=== PATIENT | female | born 1975 | race Two or more races ===

== ENCOUNTER 2016-07-26 20:48 | Emergency (ER) | payer MEDICAID ==
[2016-07-26 21:24] VITALS: BP 125/79
== END 2016-07-26 22:00 | disposition left against medical advice (07) ==
LOC: ER 20:48
DX: Z53.9 Procedure and treatment not carried out, unspecified reason (principal); R51 Headache

== ENCOUNTER 2016-08-04 07:52 | Emergency (ER) | payer MEDICAID ==
[2016-08-04] MEDS ORDERED: DIPHENHYDRAMINE HCL 50 MG/ML VIAL IV ONE (08:20)
[2016-08-04] MEDS ORDERED: PROCHLORPERAZINE EDISYLATE INJ 10 MG/2 ML VIAL IV ONE (08:20)
--- NOTE | 2016-08-04 08:23 | ER Document Report ---
ED General - General Chief Complaint: Headache Stated Complaint: HEADACHE Mode of Arrival: Ambulatory Information source: Patient Notes: 40-year-old female history of chronic headaches presents with complaints of three-day duration waxing waning headache associated with nausea vomiting. Patient notes this is similar to previous headaches, states this is not the worse headache she has ever had. Patient is in the right side of her head associated with photophobia TRAVEL OUTSIDE OF THE [place] IN LAST 30 DAYS: No - HPI Onset: Other Onset/Duration: Waxing and waning Quality of pain: Achy Severity: Mild Pain Level: 1 Associated symptoms: Headache, Nausea, Vomiting Exacerbated by: Other - Lites Relieved by: Denies Similar symptoms previously: Yes Recently seen / treated by doctor: Yes - Related Data Allergies/Adverse Reactions: No Known Allergies Allergy (Verified 08/04/16 07:54) Past Medical History - Social History Smoking Status: Never Smoker Cigarette use (# per day): No Chew tobacco use (# tins/day): No Smoking Education Provided: No Family History: Reviewed & Not Pertinent Patient has suicidal ideation: No Patient has homicidal ideation: No Renal/ Medical History: Denies: Hx Peritoneal Dialysis - Immunizations Hx Diphtheria, Pertussis, Tetanus Vaccination: Yes Review of Systems - Review of Systems Notes: REVIEW OF SYSTEMS: CONSTITUTIONAL : Denies fever, chills, or sweats. Denies recent illness. EENT: Denies eye, ear, throat, or mouth pain or symptoms. Denies nasal or sinus congestion or discharge. Denies throat, tongue, or mouth swelling or difficulty swallowing. CARDIOVASCULAR: Denies chest pain. Denies palpitations or racing or irregular heart beat. Denies ankle edema. RESPIRATORY: Denies cough, cold, or chest congestion. Denies shortness of breath, difficulty breathing, or wheezing. GASTROINTESTINAL: Admits to nausea vomiting GENITOURINARY: Denies difficulty urinating, painful urination, burning, frequency, blood in urine, or discharge. FEMALE GENITOURINARY: Denies vaginal bleeding, heavy or abnormal periods, irregular periods. Denies vaginal discharge or odor. MUSCULOSKELETAL: Denies back or neck pain or stiffness. Denies joint pain or swelling. SKIN: Denies rash, lesions or sores. HEMATOLOGIC : Denies easy bruising or bleeding. LYMPHATIC: Denies swollen, enlarged glands. NEUROLOGICAL: Admits to headache PSYCHIATRIC: Denies anxiety or stress. Denies depression, suicidal ideation, or homicidal ideation. ALL OTHER SYSTEMS REVIEWED AND NEGATIVE. Dictation was performed using [employer] voice recognition software PHYSICAL EXAMINATION: GENERAL: Well-appearing, well-nourished and in no acute distress. HEAD: Atraumatic, normocephalic. EYES: Pupils equal round and reactive to light, extraocular movements intact, conjunctiva are normal. ENT: Nares patent, oropharynx clear without exudates. Moist mucous membranes. NECK: Normal range of motion, supple without lymphadenopathy LUNGS: Breath sounds clear to auscultation bilaterally and equal. No wheezes rales or rhonchi. HEART: Regular rate and rhythm without murmurs ABDOMEN: Soft, nontender, nondistended abdomen. No guarding, no rebound. No masses appreciated. Female : deferred Musculoskeletal: Normal range of motion, no pitting or edema. No cyanosis. NEUROLOGICAL: Cranial nerves grossly intact. Normal speech, normal gait. Normal sensory, motor exams finger to nose [id number] are normal PSYCH: Normal mood, normal affect. SKIN: Warm, Dry, normal turgor, no rashes or lesions noted. Physical Exam - Vital signs Vitals: Temp Pulse Resp BP Pulse Ox 98.6 F 81 14 126/78 H 98 08/04/16 07:55 08/04/16 07:55 08/04/16 07:55 08/04/16 07:55 08/04/16 07:55 Course - Re-evaluation Re-evalutation: 08/04/16 08:23 Patient has probable migraine headaches, CT of the head has been ordered 08/04/16 10:28 Patient symptoms have completely resolved, she wishes to be discharged home. Patient otherwise looks well will be given follow-up with neurology After performing a Medical Screening Examination, I estimate there is LOW risk for ACUTE GLAUCOMA, TEMPORAL ARTERITIS, MENINGITIS, INCRANIAL HEMORRHAGE, or ISCHEMIC STROKE thus I consider the discharge disposition reasonable. I have reevaluated this patient multiple times and no significant life threatening changes are noted. The patient and I have discussed the diagnosis and risks, and we agree with discharging home with close follow-up with the understanding that symptoms and presentations can change. We also discussed returning to the Emergency Department immediately if new or worsening symptoms occur. We have discussed the symptoms which are most concerning (e.g., changing or worsening symptoms, new numbness or weakness, vomiting, fever) that necessitate immediate return. - Vital Signs Vital signs: Temp Pulse Resp BP Pulse Ox 98.6 F 81 14 126/78 H 98 08/04/16 07:55 08/04/16 07:55 08/04/16 07:55 08/04/16 07:55 08/04/16 07:55 - Diagnostic Test Radiology reviewed: Image reviewed, Reports reviewed - No acute abnormality Discharge - Discharge Clinical Impression: Migraine headache Qualifiers: Migraine type: unspecified Status migrainosus presence: without status migrainosus Intractability: not intractable Qualified Code(s): G43.909 - Migraine, unspecified, not intractable, without status migrainosus Nausea & vomiting Qualifiers: Vomiting type: unspecified Vomiting Intractability: non-intractable Qualified Code(s): R11.2 - Nausea with vomiting, unspecified Condition: Stable Disposition: HOME, SELF-CARE Instructions: Headache ([facility]) Prescriptions: Promethazine HCl [Phenergan 25 mg Tablet] 25 - 50 mg PO Q4HP PRN #12 tablet PRN Reason: Referrals: MATTHEW SAUER MD [ACTIVE STAFF] - Follow up tomorrow
[2016-08-04 10:48] VITALS: BP 116/61
== END 2016-08-04 10:40 | disposition home or self-care (01) ==
LOC: ER 07:52
DX: G43.909 Migraine, unspecified, not intractable, without status migrainosus (principal); R11.2 Nausea with vomiting, unspecified; H53.149 Visual discomfort, unspecified
CPT/HCPCS: 99283; 96374; 96375; 70450; J1200; J0780

== ENCOUNTER 2016-11-05 12:36 | Emergency (ER) | payer MEDICAID ==
--- NOTE | 2016-11-05 15:14 | ER Document Report ---
ED Medical Screen (RME) - General Chief Complaint: Abdominal Pain Stated Complaint: RIB PAIN Time Seen by Provider: 11/05/16 15:13 Mode of Arrival: Ambulatory Information source: Patient Notes: 41-year-old Norwegian female that presents to the emergency room with back pain since this morning. Patient denies fever, chills, nausea vomiting. Patient denies chest pain. TRAVEL OUTSIDE OF THE [place] IN LAST 30 DAYS: No - Related Data Allergies/Adverse Reactions: No Known Allergies Allergy (Verified 08/04/16 07:54) Past Medical History - Social History Chew tobacco use (# tins/day): No Frequency of alcohol use: None Drug Abuse: None Neurological Medical History: Reports: Hx Migraine Renal/ Medical History: Denies: Hx Peritoneal Dialysis GI Medical History: Reports: Hx Gastroesophageal Reflux Disease - TAKES OTC NEXIUM Surgical Hx: Negative - Immunizations Hx Diphtheria, Pertussis, Tetanus Vaccination: Yes Physical Exam - Vital signs Vitals: Temp Pulse Resp BP Pulse Ox 97.9 F 79 17 121/74 99 11/05/16 13:14 11/05/16 13:14 11/05/16 13:14 11/05/16 13:14 11/05/16 13:14 Course - Vital Signs Vital signs: Temp Pulse Resp BP Pulse Ox 97.9 F 79 17 121/74 99 11/05/16 13:14 11/05/16 13:14 11/05/16 13:14 11/05/16 13:14 11/05/16 13:14
[2016-11-05 15:32] LABS: ABSOLUTE EOSINOPHILS # (AUTO) 0.1 10^3/uL (0.0-0.6); ABSOLUTE MONOCYTES (AUTO) 0.8 10^3/uL (0.1-1.4); ABSOLUTE NEUT (AUTO) 5.2 10^3/uL (1.7-8.2); BASOPHILS % (AUTO) 0.4 % (0-2); EOSINOPHILS % (AUTO) 0.9 % (0-6); HEMATOCRIT 35.6 % (36.0-47.0); HEMOGLOBIN 11.2 g/dL (12.0-15.5); LYMPHOCYTES % (AUTO) 39.3 % (13-45); MEAN CORPUSCULAR HEMOGLOBIN 21.3 pg (27.0-33.4); MEAN CORPUSCULAR HGB CONC 31.4 g/dL (32.0-36.0); MEAN CORPUSCULAR VOLUME 68 fl (80-97); MONOCYTES % (AUTO) 7.9 % (3-13); RED BLOOD COUNT 5.23 10^6/uL (3.72-5.28); RED CELL DISTRIBUTION WIDTH 15.8 % (11.5-14.0); SEGMENTED NEUTROPHILS % (AUTO) 51.5 % (42-78); WHITE BLOOD COUNT 10.1 10^3/uL (4.0-10.5)
[2016-11-05 15:35] LABS: APPEARANCE,URINE CLOUDY; BILIRUBIN,URINE NEGATIVE (NEGATIVE); GLUCOSE, URINE NEGATIVE (NEGATIVE); KETONES,URINE NEGATIVE (NEGATIVE); LEUKOCYTE ESTERASE,URINE LARGE (NEGATIVE); NITRITE,URINE NEGATIVE (NEGATIVE); PROTEIN,URINE 30 mg/dL (NEGATIVE); URINE SPECIFIC GRAVITY 1.029; UROBILINOGEN,URINE NEGATIVE mg/dL (<2.0)
[2016-11-05 15:49] LABS: ALANINE AMINOTRANSFERASE 27 U/L (9-52); ALBUMIN 4.4 g/dL (3.5-5.0); ALKALINE PHOSPHATASE 47 U/L (38-126); ANION GAP 11 (5-19); ASPARTATE AMINO TRANSFERASE 14 U/L (14-36); BILIRUBIN,DIRECT 0.2 mg/dL (0.0-0.4); BILIRUBIN,TOTAL 0.4 mg/dL (0.2-1.3); BLOOD UREA NITROGEN 11 mg/dL (7-20); CALCIUM 9.1 mg/dL (8.4-10.2); CARBON DIOXIDE 25 mmol/L (22-30); CHLORIDE 105 mmol/L (98-107); CREATININE RESULT 0.64 mg/dL (0.52-1.25); GLUCOSE 99 mg/dL (75-110); POTASSIUM 4.1 mmol/L (3.6-5.0); SODIUM 140.9 mmol/L (137-145); TOTAL PROTEIN 7.6 g/dL (6.3-8.2)
--- NOTE | 2016-11-05 16:47 | ER Document Report ---
ED General - General Mode of Arrival: Ambulatory TRAVEL OUTSIDE OF THE [place] IN LAST 30 DAYS: No - HPI Onset: Other - Refer to HPI Notes <LIZ AUSTIN - Last Filed: 11/05/16 18:45> <KYRIE BERMAN - Last Filed: 11/05/16 23:41> - General Chief Complaint: Abdominal Pain Stated Complaint: RIB PAIN Time Seen by Provider: 11/05/16 15:13 Notes: Patient is a 41 year old Yemeni speaking female presenting to the ED for right sided pain and RUQ pain onset this morning. [employer] over the phone was used to speak with patient. Patient denies any chest pain, dysuria, burning with urination, vomiting, diarrhea, or fever. Patient states she does have some nausea and urinary frequency. Patient takes Nexium for GERD. Patient does not have any kidney history and does not have a PCP. (LIZ AUSTIN) - Related Data Allergies/Adverse Reactions: No Known Allergies Allergy (Verified 11/05/16 15:54) Home Medications: Current Home Medications Aspirin/Acetaminophen/Caffeine [Goody's Ex-Str Powder Packet] 1 pkt PO DAILY PRN 11/05/16 [History] Esomeprazole Magnesium [Nexium 24Hr] 20 mg PO DAILY 11/05/16 [History] Past Medical History - General Information source: Patient - Social History Smoking Status: Former Smoker Chew tobacco use (# tins/day): No Frequency of alcohol use: None Drug Abuse: None Family History: None Patient has suicidal ideation: No Patient has homicidal ideation: No Neurological Medical History: Reports: Hx Migraine GI Medical History: Reports: Hx Gastroesophageal Reflux Disease - TAKES OTC NEXIUM Surgical Hx: Negative - Immunizations Hx Diphtheria, Pertussis, Tetanus Vaccination: Yes <LIZ AUSTIN - Last Filed: 11/05/16 18:45> Review of Systems - Review of Systems Constitutional: No symptoms reported EENT: No symptoms reported Cardiovascular: No symptoms reported Respiratory: No symptoms reported Gastrointestinal: See HPI, Abdominal pain, Nausea Genitourinary: No symptoms reported Female Genitourinary: No symptoms reported Musculoskeletal: No symptoms reported Skin: No symptoms reported Hematologic/Lymphatic: No symptoms reported Neurological/Psychological: No symptoms reported -: Yes All other systems reviewed and negative <LIZ AUSTIN - Last Filed: 11/05/16 18:45> Physical Exam <LIZ AUSTIN - Last Filed: 11/05/16 18:45> <KYRIE BERMAN - Last Filed: 11/05/16 23:41> - Vital signs Vitals: Temp Pulse Resp BP Pulse Ox 97.9 F 79 17 121/74 99 11/05/16 13:14 11/05/16 13:14 11/05/16 13:14 11/05/16 13:14 11/05/16 13:14 - Notes Notes: GENERAL: Alert, interacts well, Yemeni speaking. Mild distress. HEAD: Normocephalic, atraumatic. EYES: Appear normal. Pupils equal, round, and reactive to light. ENT: Moist mucus membranes, tongue midline. NECK: Full range of motion. Supple. Trachea midline. LUNGS: Clear to auscultation bilaterally, no wheezes, rales, or rhonchi. No respiratory distress. HEART: Regular rate and rhythm. No murmurs, gallops, or rubs. ABDOMEN: Soft, mild RUQ tenderness with palpation. Non-distended. Normal bowel sounds. EXTREMITIES: Moves all 4 extremities spontaneously. Normal strength. No edema. NEUROLOGICAL: Alert and oriented x3. Normal speech, Japanease speaking. No focal neurological deficits. GSC 15. PSYCH: Normal affect, normal mood. SKIN: Warm, dry, normal turgor. No rashes or lesions noted. (LIZ AUSTIN) Course - Laboratory Result Diagrams: 11/05/16 15:14 11/05/16 15:14 <LIZ AUSTIN - Last Filed: 11/05/16 18:45> - Laboratory Result Diagrams: 11/05/16 15:14 11/05/16 15:14 <KYRIE BERMAN - Last Filed: 11/05/16 23:41> - Re-evaluation Re-evalutation: 11/05/16 18:39 Patient is Yemeni and language line is used for translation. 1 day history of right-sided abdominal pain associated with nausea no vomiting diarrhea or association with food. Denies any burning with urination burning urination or history of kidney stones. She says she has no medical problems and is on no medications and has no doctor. On examination well-appearing nontoxic afebrile no acute abdominal findings or flank tenderness urinary tract infection CT scan does not show a kidney stone or pyelonephritis potential gallstones no acute signs of acute cholecystitis. Patient will be discharged on Macrobid after receiving Rocephin gave her family doctor for follow-up she is to call Sunday for a follow-up appointment in 3-4 days and specifically discussed with the language line and in Yemeni her discharge instructions and reasons for ED return sooner (KYRIE BERMAN) - Vital Signs Vital signs: Temp Pulse Resp BP Pulse Ox 97.9 F 80 16 113/81 99 11/05/16 18:50 11/05/16 18:50 11/05/16 18:50 11/05/16 18:50 11/05/16 18:50 - Laboratory Laboratory results interpreted by me: 11/05/16 11/05/16 15:14 15:14 Hgb 11.2 L Hct 35.6 L MCV 68 L MCH 21.3 L MCHC 31.4 L RDW 15.8 H Urine Protein 30 H Urine Blood SMALL H Ur Leukocyte Esterase LARGE H Discharge <LIZ AUSTIN - Last Filed: 11/05/16 18:45> <KYRIE BERMAN - Last Filed: 11/05/16 23:41> - Discharge Clinical Impression: Acute UTI, gallstones Condition: Stable Disposition: HOME, SELF-CARE Instructions: Urinary Tract Infection ([facility]), Nitrofurantoin ([facility]) Additional Instructions: Urinary Tract Infection Your evaluation indicates that you have a urinary tract infection. This is due to germs growing in the bladder. This is a common problem. This infection usually responds quickly to antibiotics. Your antibiotic should be taken exactly as prescribed. Drink plenty of fluids -- three to four quarts a day. Occasionally, a bladder anesthetic will be prescribed to help stop the feeling of urgency until the antibiotic has a chance to clear the infection. This may cause your urine to be dark orange. Certain urine infections require a culture. If the doctor obtained a culture, the results will be back in two days. You should call to see if a change in treatment is needed. A repeat urinalysis after you finish treatment is often recommended. The physician will let you know if further testing is required. Call the doctor if you develop fever, chills, flank pain, inability to urinate, or blood in the urine. Gallbladder Disease- gallstone Your evaluation shows evidence of gallbladder disease. The gallbladder is a pouch under the liver which stores bile. Stones, infection, or irritation of the gallbladder cause attacks of pain. Certain foods -- fats in particular -- may provoke attacks. The usual treatment for gallbladder disease is surgical removal of the gallbladder -- called a cholecystectomy. You will be referred to a physician qualified to advise you on the best treatment for your problem. Hospitalization is not necessary. Take clear liquids only until you are painfree. After that, you should stay on a low-fat diet, with frequent SMALL meals. Call the doctor or return at once if you develop severe pain, repeated vomiting, fever, or jaundice (a yellow color in the skin and whites of the eyes) . Prescriptions: Nitrofurantoin/Nitrofuran Mac [Macrobid 100 mg Capsule] 1 tab PO BID #20 capsule Referrals: [facility] [Provider Group] (Call on Sunday for appointment to be seen in follow-up in 3-4 days return to emergency department sooner for increasing worsening or new symptoms) Print Language: [place] Attestation: 11/05/16 18:39 I personally performed the services described in the documentation reviewed the documentation recorded by my scribe in my presence and it accurately and completely records my words and actions (KYRIE BERMAN) Scribe Documentation - Scribe Written by Rigoberto:: Rigoberto Escobar 11/05/16 18:44 acting as scribe for :: Jona <LIZ AUSTIN - Last Filed: 11/05/16 18:45>
--- NOTE | 2016-11-05 17:02 | RADIOLOGY REPORT (SQ) ---
EXAM DESCRIPTION: CT ABD/PELVIS NO ORAL OR IV COMPLETED DATE/TIME: 11/05/2016 4:49 pm REASON FOR STUDY: flank pain hematuria COMPARISON: None. TECHNIQUE: CT scan of the abdomen and pelvis performed without intravenous or oral contrast. Images reviewed with lung, soft tissue, and bone windows. Reconstructed coronal and sagittal MPR images revi ewed. All images stored on PACS. All CT scanners at this facility use dose modulation, iterative reconstruction, and/or weight based d osing when appropriate to reduce radiation dose to as low as reasonably achievable (ALARA). [facility]: Dose Right [facility]: CareDose [facility]: Dose Right [facility]: Teradose 4D [facility]: Smart URX RADIATION DOSE: Up-to-date CT equipment and radiation dose reduction techniques were employed. CTDIv ol: 10.2 mGy. DLP: 597 mGy-cm.mGy. LIMITATIONS: None. FINDINGS: LOWER CHEST: No significant findings. No nodules or infiltrates. NON-CONTRASTED LIVER, SPLEEN, ADRENALS: Evaluation limited by lack of IV contrast. No identified sign ificant masses. PANCREAS: No masses. No peripancreatic inflammatory changes. GALLBLADDER: Rim calcified gallstone is identified. No inflammatory changes to suggest cholecystitis. RIGHT KIDNEY AND URETER: No suspicious masses. Assessment limited by lack of IV contrast. No signif icant calcifications. No hydronephrosis or hydroureter. LEFT KIDNEY AND URETER: No suspicious masses. Assessment limited by lack of IV contrast. No signifi cant calcifications. No hydronephrosis or hydroureter. AORTA AND RETROPERITONEUM: No aneurysm. No retroperitoneal masses or adenopathy. BOWEL AND PERITONEAL CAVITY: No obvious masses or inflammatory changes. No free fluid. APPENDIX: Normal. PELVIS, BLADDER, AND ABDOMINAL WALL:No abnormal masses. No free fluid. Bladder normal. BONES: No significant findings. OTHER: No other significant finding. IMPRESSION: Rim calcified gallstone. No other significant findings. TECHNICAL DOCUMENTATION: JOB ID: [id number] Quality ID # [id number]: Final reports with documentation of one or more dose reduction techniques (e.g., Au tomated exposure control, adjustment of the mA and/or kV according to patient size, use of iterative reconstruction technique) 2010 [employer]- All Rights Reserved
[2016-11-05] MEDS ORDERED: CEFTRIAXONE INJ 1000 MG VIAL IM ONE (17:50)
[2016-11-05] MEDS ORDERED: NITROFURANTOIN MONOHYD/M-CRYST 100 MG CAPSULE PO ONE (18:42)
[2016-11-05 18:51] VITALS: BP 113/81
== END 2016-11-05 18:50 | disposition home or self-care (01) ==
LOC: ER 12:36
DX: N39.0 Urinary tract infection, site not specified (principal); K80.80 Other cholelithiasis without obstruction; Z79.899 Other long term (current) drug therapy; K21.9 Gastro-esophageal reflux disease without esophagitis; Z87.891 Personal history of nicotine dependence
CPT/HCPCS: 99284; 36415; 87086; 84702; 85025; 80053; 81001; 74176; J3490; J8499

== ENCOUNTER 2017-02-07 07:52 | Day surgery (SDC) | payer MEDICAID ==
[~2017-02-07 07:52] MED LIST: DIPHENHYDRAMINE HCL 50 MG/ML VIAL ONE; EPINEPHRINE INJ 1 MG/10 ML DISP.SYRIN ONE; FLUMAZENIL INJ 0.5 MG/5 ML VIAL ONE; GLUCAGON,HUMAN RECOMB 1 MG INJ ONE; NALOXONE HCL INJ/PF 0.4 MG/1 ML SDV ONE; ONDANSETRON HCL INJ/PF 4 MG/2 ML SDV ONE
[2017-02-07] MEDS: MIDAZOLAM 2 MG/2 ML INJ ONE ×2 (08:30→08:34)
[2017-02-07] MEDS: FENTANYL CITRATE INJ/PF 100 MCG/2 ML AMPUL ONE ×2 (08:32→08:36)
--- NOTE | 2017-02-07 08:47 | Operative Report ---
Operative Report DATE OF SURGERY: 02/07/17 Operative Report: The risks benefits and alternatives of the procedure explained to the patient in detail and informed consent is obtained.A GIF Olympus video scope was inserted into the patient's mouth and hypopharynx, the esophagus is identified intubated and insufflated, the scope was then advanced through the esophagus stomach and duodenum, retroflexion maneuver is done, the esophagus stomach and first and second portions of the duodenum examined PREOPERATIVE DIAGNOSIS: Dysphagia POSTOPERATIVE DIAGNOSIS: Gastritis status post biopsy rule out Helicobacter pylori. Esophagitis status post biopsy rule out eosinophilic esophagitis OPERATION: EGD with biopsy SURGEON: CHARLY HOWELL ANESTHESIA: Moderate Sedation - 4 mg of Zofran, 4 mg of Versed, 100 mcg of fentanyl. Conscious sedation monitoring time 30 minutes. TISSUE REMOVED OR ALTERED: Gastric mucosal specimen obtained. Esophageal mucosal specimen obtained COMPLICATIONS: None. ESTIMATED BLOOD LOSS: None. INTRAOPERATIVE FINDINGS: As noted above. PROCEDURE: Patient tolerated the procedure well. No immediate postprocedure complications are noted. Patient discharged in good condition. Discharge date 3516. Discharge diet: Regular. Discharge activity: Regular. 2-3 week follow-up to discuss findings. Patient is instructed to call the office or proceed to the emergency room should there be any further problems or questions. We will await pathology.
[2017-02-07 10:08] VITALS: BP 112/67
== END 2017-02-07 09:55 | disposition home or self-care (01) ==
LOC: END 07:52
PROVIDERS: ATTEND Internal Medicine Gastroenterology
PROC: 0DB58ZX Excision of Esophagus, Via Natural or Artificial Opening Endoscopic, Diagnostic (ICD-10-PCS; 2017-02-07)
PROC: 0DB68ZX Excision of Stomach, Via Natural or Artificial Opening Endoscopic, Diagnostic (ICD-10-PCS; principal; 2017-02-07 08:00)
DX: K29.50 Unspecified chronic gastritis without bleeding (principal); K21.0 Gastro-esophageal reflux disease with esophagitis; Z87.891 Personal history of nicotine dependence; Z79.899 Other long term (current) drug therapy
CPT/HCPCS: 43239; 88342 ×2; 88305 ×2; J2250; J3010; J2405; J0171; J1200; J1610; J2310; J3490

== ENCOUNTER 2018-05-07 06:31 | Emergency (ER) | payer MEDICAID, OTHER ==
[2018-05-07] MEDS ORDERED: KETOROLAC TROMETHAMINE INJ/PF 30 MG/1 ML SDV IV ONE (07:16)
--- NOTE | 2018-05-07 07:19 | ER Document Report ---
ED General - General Chief Complaint: Flu Symptoms Stated Complaint: HEADACHE,SORE THROAT,COUGH,CHEST PAIN Time Seen by Provider: 05/07/18 07:07 TRAVEL OUTSIDE OF THE [place] IN LAST 30 DAYS: No - HPI Notes: Patient is a 42-year-old female who presents emergency department complaining of fever and dry nonproductive cough that began last evening. Patient states that she has been otherwise eating and drinking without difficulties. Patient states that she does have a burning sensation in her chest only with a cough and not at rest. She has been exposed to a recent illness with in the household. She d enies any drug allergies or smoking history. No other significant past medical history. She does not take any medicines daily. Denies any headache, fever, neck pain, sore throat, palpitations, syncope, shortness of breath, wheeze, dyspnea, abdominal pain, nausea/vomiting/diarrhea, urinary retention, dysuria, hematuria, joint pains, or rash. - Related Data Allergies/Adverse Reactions: No Known Allergies Allergy (Verified 02/07/17 07:55) Past Medical History - Social History Smoking Status: Never Smoker Family History: None - Past Medical History Cardiac Medical History: Denies: Hx Coronary Artery Disease, Hx Heart Attack, Hx Hypertension Pulmonary Medical History: Denies: Hx Asthma, Hx Bronchitis, Hx COPD, Hx Pneumonia Neurological Medical History: Reports: Hx Migraine. Denies: Hx Cerebrovascular Accident, Hx Seizures Renal/ Medical History: Denies: Hx Peritoneal Dialysis GI Medical History: Reports: Hx Gastroesophageal Reflux Disease - TAKES OTC NEXIUM Musculoskeletal Medical History: Denies Hx Arthritis Past Surgical History: Denies: Hx Hysterectomy - Immunizations Hx Diphtheria, Pertussis, Tetanus Vaccination: Yes Review of Systems - Review of Systems -: Yes All other systems reviewed and negative Physical Exam - Vital signs Vitals: Temp Pulse Resp BP Pulse Ox 101 F H 120 H 18 100/78 97 05/07/18 06:43 05/07/18 06:43 05/07/18 06:43 05/07/18 06:43 05/07/18 06:43 - Notes Notes: PHYSICAL EXAMINATION: GENERAL: Well-appearing, well-nourished and in no acute distress. A&Ox4. Answers questions appropriately. Moves comfortably w/o notable distress HEAD: Atraumatic, normocephalic. EYES: Pupils equal round and reactive to light, extraocular movements intact, sclera anicteric, conjunctiva are normal. ENT: EAC clear b/l. TM's intact b/l without erythema, fluid, or perforation. Nares patent and without discharge. oropharynx mild erythema without exudates. 1+ tonsilar hypertrophy without erythema or exudate. No palatine shift. Uvula midline. No tongue protrusion. No drooling, hoarseness, or airway compromise. Moist mucous membranes. No sinus tenderness. NECK: Normal range of motion, supple without lymphadenopathy. No rigidity/meningismus. LUNGS: Breath sounds clear to auscultation bilaterally and equal. No wheezes rales or rhonchi. No retractions HEART: Regular rate and rhythm without murmurs, rubs, gallops. ABDOMEN: Soft, nontender, nondistended abdomen. No guarding, no rebound. No masses appreciated. Normal bowel sounds present. No CVA tenderness bilaterally. No hepatosplenomegaly. Ext's: No edema. No asymmetry. Lu neg b/l. NEUROLOGICAL: Normal speech, normal gait. Normal sensory, motor exams PSYCH: Normal mood, normal affect. SKIN: Warm, Dry, normal turgor, no rashes or lesions noted. Course - Re-evaluation Re-evalutation: 05/07/18 09:23 Patient is an afebrile, well-hydrated, 42-year-old female who presents to the ED with Influenza A. Vitals are acceptable. PE is otherwise unremarkable. Influenza +, strep negative. CXR unremarkable. No other labs or imaging warranted at this time based on H&P. Patient has no significant cardiopulmonary or immunocompromised medical conditions. Patient's lungs are clear to auscultation bilaterally without tachycardia, hypoxia, or tachypnea. Patient is tolerating p.o. without any difficulties. Thoroughly reviewed the risks, be nefits, potential side effects, estimated cost without insurance with patient. After thorough review, patient requested Tamiflu. Low suspicion for any meningitis, sepsis, peritonsillar/pharyngeal abscess, respiratory compromise, severe dehydration, or other emergent systemic condition at this time. Patient is aware this condition can change from initial presentation and she needs to monitor symptoms closely. Conservative measures otherwise for symptoms. Recheck with your PCM in 3-5 days. Return to the ED with any worsening/concerning symptoms otherwise as reviewed in discharge. Patient is in agreement. - Vital Signs Vital signs: Temp Pulse Resp BP Pulse Ox 101 F H 120 H 18 100/78 97 05/07/18 06:43 05/07/18 06:43 05/07/18 06:43 05/07/18 06:43 05/07/18 06:43 Discharge - Discharge Clinical Impression: Influenza A Condition: Stable Additional Instructions: Maintain adequate fluid intake Take meds as directed tylenol/ibuprofen as needed over the counter cold medication as needed for symptoms Humidified air may help Wash your hands regularly Wear a mask when coughing F/u: with your PCM in 3-5 days for a recheck Return to the ED with any fever, worsening pain, chest pain, palpitations, syncope, worsening SANDHU, neck pain/stiffness, shortness of breath, wheezing, drooling, trouble swallowing/breathing, abdominal pain, n/v/d, rash, or worsening/concerning symptoms otherwise. Prescriptions: Oseltamivir Phosphate [Tamiflu 75 mg Capsule] 75 mg PO BID #10 capsule Referrals: [facility] [Provider Group] - Follow up as needed [facility] [Provider Group] - Follow up as needed
--- NOTE | 2018-05-07 07:52 | RADIOLOGY REPORT (SQ) ---
EXAM DESCRIPTION: XR CHEST 2 VIEWS COMPLETED DATE/TME: 05/07/2018 07:15 CLINICAL HISTORY: cough COMPARISON: 04/29/2012 FINDINGS: Frontal and lateral views of the chest. The cardiomediastinal silhouette has normal size and contour. No consolidation, pneumothorax, or pleural effusion. No acute osseous abnormalities. Leads overlie the chest. Upper abdominal soft tissues are unremarkable. IMPRESSION: 1. No acute pulmonary process identified.
[2018-05-07] MEDS: NORMAL SALINE 1000 ML 1,000 ML IV PRN ×2 (07:59→08:39)
[2018-05-07 08:32] LABS: A TYPE INFLUENZA AG POSITIVE (NEGATIVE)
[2018-05-07 08:33] LABS: B INFLUENZA AG NEGATIVE (NEGATIVE)
[2018-05-07 09:26] VITALS: BP 106/58
== END 2018-05-07 09:51 | disposition home or self-care (01) ==
LOC: ER 06:31
DX: J11.1 Influenza due to unidentified influenza virus with other respiratory manifestations (principal); R51 Headache; R05 Cough
CPT/HCPCS: 99283; 96361; 96374; 87070; 87880; 87804; 71046; J1885; J7030

== ENCOUNTER 2018-12-07 12:36 | Emergency (ER) | payer OTHER ==
--- NOTE | 2018-12-07 13:21 | ER Document Report ---
ED GI/ <MARY WYATT Katie - Last Filed: 12/07/18 13:41> - General Information source: Patient TRAVEL OUTSIDE OF THE [place] IN LAST 30 DAYS: No <ZAC LAINEZ - Last Filed: 12/07/18 15:26> - General Chief Complaint: Vaginal Bleeding Stated Complaint: HEAVY VAGINAL BLEEDING Time Seen by Provider: 12/07/18 13:18 Notes: HPI: 43-year-old female that states the last 2 menstrual cycles have been longer than normal. She denies any fevers, pain, dysuria, or blood clots. She states she feels a little lightheaded but denies any headache, neck pain, chest pain, palpitations. ROS: See HPI All other review of systems reviewed and otherwise negative Reviewed vital signs and nursing note as charted by RN. PHYSICAL EXAM: CONSTITUTIONAL: Alert and oriented and responds appropriately to questions. Well-appearing; well-nourished HEAD: Normocephalic; atraumatic EYES: Sclerae pale CARD: Regular rate and rhythm; no murmurs; symmetric distal pulses RESP: Normal chest excursion without splinting or tachypnea; breath sounds clear and equal bilaterally ABD/GI: Normal bowel sounds; non-distended; soft, non-tender to deep palpation of all 4 quadrants of the abdomen BACK: The back appears normal and is non-tender to palpation EXT: Normal ROM in all joints; non-tender to palpation; no edema SKIN: No acute lesions noted NEURO: CN 2-12 intact; 5/5 bilateral upper and lower extremity strength with sensation intact to light touch PSYCH: The patient's mood and manner are appropriate. Grooming and personal hygiene are appropriate. (ZAC LAINEZ) - Related Data Allergies/Adverse Reactions: No Known Allergies Allergy (Verified 02/07/17 07:55) Past Medical History - Social History Smoking Status: Unknown if Ever Smoked Family History: None Patient has suicidal ideation: No Patient has homicidal ideation: No - Past Medical History Cardiac Medical History: Denies: Hx Coronary Artery Disease, Hx Heart Attack, Hx Hypertension Pulmonary Medical History: Denies: Hx Asthma, Hx Bronchitis, Hx COPD, Hx Pneumonia Neurological Medical History: Reports: Hx Migraine. Denies: Hx Cerebrovascular Accident, Hx Seizures Renal/ Medical History: Denies: Hx Peritoneal Dialysis GI Medical History: Reports: Hx Gastroesophageal Reflux Disease - TAKES OTC NEXIUM Musculoskeletal Medical History: Denies Hx Arthritis Past Surgical History: Denies: Hx Hysterectomy - Immunizations Hx Diphtheria, Pertussis, Tetanus Vaccination: Yes <ZAC LAINEZ - Last Filed: 12/07/18 15:26> Physical Exam - Vital signs Vitals: Temp Pulse Resp BP Pulse Ox 98.8 F 83 16 143/86 H 99 12/07/18 12:48 12/07/18 12:48 12/07/18 12:48 12/07/18 12:48 12/07/18 12:48 Course - Laboratory Result Diagrams: 12/07/18 13:50 12/07/18 13:50 <ZAC LAINEZ - Last Filed: 12/07/18 15:26> - Re-evaluation Re-evalutation: 12/07/18 13:21 Given the history and physical examination we will obtain a hemoglobin level, perform a pelvic examination, and reassess. Given that the patient has absolutely no discomfort, the age of 43, I do believe this may be possibly perimenopausal bleeding. 12/07/18 15:20 Labs imaging and pelvic examination results as recorded. Pelvic examination performed by the [facility] showed no obvious external or internal lesions. No cervical motion tenderness. Some blood in the vaginal vault. is negative. Patient still has no pain on examination. Given the above history, physical, hemoglobin level, patient's age, I do not believe any further imaging or laboratory work is necessary at this moment. I will start the patient on Provera daily for 10 days with follow up OBGYN. Strict return precautions explained. (ZAC LAINEZ) - Vital Signs Vital signs: Temp Pulse Resp BP Pulse Ox 98.8 F 83 16 143/86 H 99 12/07/18 12:48 12/07/18 12:48 12/07/18 12:48 12/07/18 12:48 12/07/18 12:48 - Laboratory Laboratory results interpreted by me: 12/07/18 12/07/18 13:50 13:50 Eos % (Auto) 6.9 H Absolute Eos (auto) 0.7 H Glucose 117 H Procedures - Pelvic Exam Pelvic exam Time completed: 13:38 Cultures obtained: Yes Wet prep obtained: Yes Herpes culture obtained: No Foreign body removed: No Bimanual exam performed: Yes Witnessed by: ALEXANDRE Nuñez <MARY WYATT - Last Filed: 12/07/18 13:41> - Pelvic Exam Pelvic exam Notes: 12/07/18 13:38 Patient requested to have female provider complete pelvic exam. Patient with moderate vaginal bleeding with no clots or brisk bleeding. Cervix is closed. There is no CMT or adnexal tenderness. Uterus is non tender to palpation but does appear to be enlarged. (MARY WYATT) Discharge <MARY WYATT - Last Filed: 12/07/18 13:41> <ZAC LAINEZ - Last Filed: 12/07/18 15:26> - Discharge Clinical Impression: Dysfunctional uterine bleeding Condition: Good Disposition: HOME, SELF-CARE Additional Instructions: Come back immediately for any increased bleeding, lightheadedness, dizziness, chest pain, or any other acute problems. Please follow-up with [facility] as we have helped expedite for you. Prescriptions: Medroxyprogesterone Acet [Provera 10 Mg Tablet] 10 mg PO DAILY #7 tablet Referrals: MARINA JAMES MD [YESI ARNDT] - Follow up as needed
[2018-12-07 14:01] LABS: RBCS (WET MOUNT) 4+ RBCS SEEN; T.VAGINALIS (WET MOUNT) NO TRICHOMONAS SEEN; WBCS (WET MOUNT) FEW WBCS SEEN; YEAST (WET MOUNT) NO YEAST SEEN
[2018-12-07 14:06] LABS: ABSOLUTE BASOPHILS # (AUTO) 0.1 10^3/uL (0.0-0.2); ABSOLUTE EOSINOPHILS # (AUTO) 0.7 10^3/uL (0.0-0.6); ABSOLUTE MONOCYTES (AUTO) 0.7 10^3/uL (0.1-1.4); ABSOLUTE NEUT (AUTO) 5.9 10^3/uL (1.7-8.2); BASOPHILS % (AUTO) 0.7 % (0-2); EOSINOPHILS % (AUTO) 6.9 % (0-6); HEMATOCRIT 40.5 % (36.0-47.0); HEMOGLOBIN 13.5 g/dL (12.0-15.5); LYMPHOCYTES % (AUTO) 28.6 % (13-45); MEAN CORPUSCULAR HEMOGLOBIN 27.7 pg (27.0-33.4); MEAN CORPUSCULAR HGB CONC 33.2 g/dL (32.0-36.0); MEAN CORPUSCULAR VOLUME 83 fl (80-97); MONOCYTES % (AUTO) 6.8 % (3-13); PLATELET COUNT 332 10^3/uL (150-450); RED BLOOD COUNT 4.87 10^6/uL (3.72-5.28); RED CELL DISTRIBUTION WIDTH 12.5 % (11.5-14.0); TOTAL CELLS COUNTED % (AUTO) 100 %; WHITE BLOOD COUNT 10.3 10^3/uL (4.0-10.5)
[2018-12-07 14:23] LABS: ANION GAP 10 (5-19); BLOOD UREA NITROGEN 11 mg/dL (7-20); CALCIUM 10.1 mg/dL (8.4-10.2); CARBON DIOXIDE 27 mmol/L (22-30); CHLORIDE 103 mmol/L (98-107); GLUCOSE 117 mg/dL (75-110)
[2018-12-07] MEDS ORDERED: MEDROXYPROGESTERONE ACET 10 MG TABLET PO ONE (15:20)
[2018-12-07 15:23] LABS: CHLAM PCR NOT DETECTED (NOT DETECT)
[2018-12-07 15:59] VITALS: BP 138/74
== END 2018-12-07 15:59 | disposition home or self-care (01) ==
LOC: ER 12:36
DX: N93.8 Other specified abnormal uterine and vaginal bleeding (principal)
CPT/HCPCS: 99284; 36415; 87210; 85025; 81025; 80048; 87491; 87591; J3490

== ENCOUNTER → 2019-02-18 | Outpatient (CLI) | payer OTHER | LOC: OD 10:00 | PROVIDERS: ATTEND Radiology Radiation Oncology | DX: C53.9 Malignant neoplasm of cervix uteri, unspecified (principal) | CPT/HCPCS: 36415; 84703 ==